=== PATIENT | female | born 1975 | race Hispanic/Latino ===

== ENCOUNTER 2021-06-10 20:00 | Emergency (ER) | payer OTHER ==
[~2021-06-10] VITALS: Ht 157.5 cm; Wt 68.5 kg
[2021-06-10] MEDS ORDERED: METHYLPREDNISOLONE SOD SUCC 125 MG/2ML VIAL IV ONE (20:30)
[2021-06-10] MEDS ORDERED: DIPHENHYDRAMINE HCL INJ 50 MG/ML VIAL IV ONE (20:30)
[2021-06-10] MEDS ORDERED: FAMOTIDINE 20 MG/2 ML VIAL IV STA (20:31)
[2021-06-10] MEDS ORDERED: DIPHENHYDRAMINE HCL INJ 50 MG/ML VIAL ONE (20:55)
[2021-06-10] MEDS ORDERED: FAMOTIDINE 20 MG/2 ML VIAL IV ONE (20:55)
[2021-06-10] MEDS ORDERED: SODIUM CHLORIDE 0.9% 250ML 250 ML ONE (20:55)
[2021-06-10] MEDS ORDERED: METHYLPREDNISOLONE SOD SUCC 125 MG/2ML VIAL ONE (20:55)
[2021-06-10] MEDS ORDERED: PREDNISONE20 MG PO (21:40)
[2021-06-10] MEDS ORDERED: FAMOTIDINE40 MG PO (21:42)
[2021-06-10 21:55] VITALS: BP 150/74
== END 2021-06-10 21:55 | disposition home or self-care (01) ==
LOC: FSED 20:20 → MERGE 20:20 → FSED 21:55
DX: L50.9 Urticaria, unspecified (principal); I10 Essential (primary) hypertension; Z85.3 Personal history of malignant neoplasm of breast
CPT/HCPCS: 96374; 96375; 96376; 99283; J1200; J2930; J7050